=== PATIENT | male | born 1995 | race African-American/Black ===

== ENCOUNTER 2020-11-30 03:11 | Emergency (ER) | payer MEDICAID ==
[~2020-11-30] VITALS: Ht 170.2 cm; Wt 73.0 kg
[2020-11-30 03:18] VITALS: BP 119/65
== END 2020-11-30 05:40 | disposition left against medical advice (07) ==
LOC: ER 03:11
DX: Z53.21 Procedure and treatment not carried out due to patient leaving prior to being seen by health care provider (principal)